=== PATIENT | female | born 1990 | race Caucasian/White ===

== ENCOUNTER 2019-02-24 17:00 | Emergency (ER) | payer MEDICAID ==
[~2019-02-24] VITALS: Ht 157.5 cm; Wt 118.2 kg
[2019-02-24 17:04] VITALS: Ht 157.5 cm; Wt 118.2 kg
[2019-02-24] MEDS ORDERED: THORAZINE50 MG PO (17:07)
[2019-02-24] MEDS ORDERED: PROPRANOLOL HCL20 MG PO (17:08)
[2019-02-24] MEDS ORDERED: BUPRENORPHIN-N1 EACH SL (17:08)
[2019-02-24] MEDS ORDERED: CYCLOBENZAPRINE10 MG PO (17:40)
[2019-02-24] MEDS ORDERED: IBUPROFEN800 MG PO (17:40)
[2019-02-24] MEDS ORDERED: ACETAMINOPHEN500 M1 PO (17:40)
[2019-02-24] MEDS ORDERED: CLEOCIN HCL300 MG PO (17:40)
[2019-02-24] MEDS ORDERED: KEFLEX500 MG PO (17:40)
[2019-02-24 18:25] VITALS: BP 116/77
[2019-02-25] MEDS ORDERED: HYDROCODON-ACE1 EA10 PO (23:01)
== END 2019-02-24 18:25 | disposition home or self-care (01) ==
LOC: D.ER 17:00
DX: T22.211A Burn of second degree of right forearm, initial encounter (principal); L03.113 Cellulitis of right upper limb

== ENCOUNTER 2019-02-25 19:09 | Emergency (ER) | payer MEDICAID ==
[~2019-02-25] VITALS: Ht 157.5 cm; Wt 118.2 kg
[~2019-02-25 19:09] MED LIST: ACETAMINOPHEN500 M1 PO; BUPRENORPHIN-N1 EACH SL; CLEOCIN HCL300 MG PO; CYCLOBENZAPRINE10 MG PO; IBUPROFEN800 MG PO; KEFLEX500 MG PO; PROPRANOLOL HCL20 MG PO; THORAZINE50 MG PO
[2019-02-25 19:46] VITALS: Ht 157.5 cm; Wt 118.2 kg
[2019-02-25] MEDS ORDERED: HYDROCODON-ACE1 EA10 PO (23:01)
[2019-02-25 23:12] VITALS: BP 11/75
== END 2019-02-25 23:13 | disposition home or self-care (01) ==
LOC: D.ER 19:09
DX: T22.212A Burn of second degree of left forearm, initial encounter (principal); X16.XXXA Contact with hot heating appliances, radiators and pipes, initial encounter; F17.210 Nicotine dependence, cigarettes, uncomplicated